=== PATIENT | female | born 1980 | race Caucasian/White ===

== ENCOUNTER → 2019-02-11 | Outpatient (CLI) | payer OTHER ==
[~2019-02-11] MED LIST: CALCIUM; IBUPROFEN 400400 M1 PO; IRON325 PO; PRENATAL
== END ==
LOC: BC 14:09
DX: N63.14 Unspecified lump in the right breast, lower inner quadrant (principal); N63.23 Unspecified lump in the left breast, lower outer quadrant

== ENCOUNTER → 2021-12-27 | Outpatient (CLI) | payer OTHER | LOC: BC 12:39 | PROVIDERS: ATTEND Family Medicine | DX: Z12.31 Encounter for screening mammogram for malignant neoplasm of breast (principal) ==